=== PATIENT | male | born 1985 | race Two or more races ===

== ENCOUNTER 2018-09-20 13:22 | Emergency (ER) | payer OTHER ==
[~2018-09-20] VITALS: Ht 175.3 cm; Wt 98.2 kg
[2018-09-20] MEDS ORDERED: GLIP10 PO (13:30)
[2018-09-20] MEDS ORDERED: METF-960 PO (13:30)
[2018-09-20] MEDS ORDERED: AMOX1TAB16 PO (13:30)
[2018-09-20] MEDS ORDERED: SULF1TAB PO (13:30)
[2018-09-20] MEDS ORDERED: LIDOCAINE/PF 1% 2 ML VIAL IM ONE (14:45)
[2018-09-20] MEDS ORDERED: CefTRIAXone SODIUM 1 GM/VIAL IM ONE (14:45)
[2018-09-20 15:45] VITALS: BP 132/94
[2018-09-21 19:59] LABS: GLUCOSE,POINT OF CARE 352 MG/DL (70-110)
== END 2018-09-20 15:47 | disposition home or self-care (01) ==
LOC: EMS 13:26
DX: L03.114 Cellulitis of left upper limb (principal); E11.9 Type 2 diabetes mellitus without complications; Z79.84 Long term (current) use of oral hypoglycemic drugs
CPT/HCPCS: 82962; 96372; 99283; J0696; J3490

== ENCOUNTER 2018-10-30 16:01 | Emergency (ER) | payer OTHER ==
[~2018-10-30] VITALS: Ht 172.7 cm; Wt 98.2 kg
[~2018-10-30 16:01] MED LIST: AMOX1TAB16 PO; GLIP10 PO; METF-960 PO; SULF1TAB PO
[2018-10-30 17:21] LABS: BASOPHILS % (AUTO) 0.5 % (0.0-2.0); HEMATOCRIT 41.3 % (41-53); HEMOGLOBIN 13.7 g/dL (13.5-17.5); LYMPHOCYTES # (AUTO) 2.8 K/uL (1.0-4.8); LYMPHOCYTES % (AUTO) 13.9 % (22.0-44.0); MEAN CORPUSCULAR HEMOGLOBIN 29.3 pg (26.0-34.0); MEAN CORPUSCULAR HGB CONC 33.3 G/dL (31.0-37.0); MEAN CORPUSCULAR VOLUME 88 fL (80-100); MONOCYTES # (AUTO) 0.9 K/uL (0.1-1.0); MONOCYTES % (AUTO) 4.6 % (2.0-9.0); NEUTROPHILS # (AUTO) 15.8 K/uL (1.8-7.7); PLATELET COUNT (AUTO) 323 K/uL (150-450); RED BLOOD CELL COUNT(AUTO) 4.69 MIL/uL (4.50-5.90); RED CELL DISTRIBUTION WIDTH 13.4 % (11.5-14.5)
[2018-10-30 17:29] LABS: APPEARANCE,URINE CLEAR (CLEAR); BILIRUBIN,URINE NEGATIVE (NEGATIVE); GLUCOSE, URINE (UA) 100 mg/dL (NEGATIVE); KETONES,URINE NEGATIVE (NEGATIVE); LEUKOCYTE ESTERASE ,URINE NEGATIVE (NEGATIVE); NITRATE,URINE NEGATIVE (NEGATIVE); OCCULT BLOOD,URINE TRACE (NEGATIVE); PH,URINE 5.5 (5.0-8.0); PROTEIN,URINE SEE CONFIRM (NEGATIVE); UROBILINOGEN,URINE 0.2 mg/dL (<=1.0)
[2018-10-30 17:31] LABS: ANION GAP 13 mmol/L (8-16); CALCIUM, TOTAL 9.7 mg/dL (8.8-10.5); CARBON DIOXIDE 23 mmol/L (22-29); CHLORIDE 103 mmol/L (98-107); CREATININE 0.92 mg/dL (0.60-1.30); GLOMERULAR FILTR. RATE CALC > 60 mL/min (>60); GLUCOSE,RANDOM 175 mg/dL (70-110); POTASSIUM 4.3 mmol/L (3.5-5.1); SODIUM SERUM 139 mmol/L (136-145); UREA NITROGEN, BLOOD 21 mg/dL (7-18)
[2018-10-30 17:37] LABS: ALANINE AMINOTRANSFERASE 30 U/L (12-78); ALBUMIN 3.6 g/dL (3.4-5.0); ALKALINE PHOSPHATASE 39 U/L (46-116); ASPARTATE AMINOTRANSFERASE 12 U/L (15-37); BILIRUBIN,TOTAL 0.4 mg/dL (0.1-1.0); LIPASE 481 U/L (73-393); TOTAL PROTEIN, SERUM 7.6 g/dL (6.4-8.2)
[2018-10-30 17:44] LABS: SULFOSALICYLIC ACID,URINE 4+ (Negative)
[2018-10-30 17:45] LABS: RBC,URINE 0-2 /HPF (0-2); WBC,URINE 0-2 /HPF (0-5)
[2018-10-30] MEDS ORDERED: KETOROLAC TROMETHAMINE 30 MG/ML VIAL IM ONE (17:45)
[2018-10-30 17:46] LABS: BACTERIA,URINE None Seen /HPF (None Seen); SQUAMOUS EPITHELIAL CELL,UR Rare /LPF (None Seen)
[2018-10-30 18:53] VITALS: BP 117/57
== END 2018-10-30 20:24 | disposition home or self-care (01) ==
LOC: EMS 16:03
DX: N50.3 Cyst of epididymis (principal); R80.9 Proteinuria, unspecified; F17.210 Nicotine dependence, cigarettes, uncomplicated; E11.9 Type 2 diabetes mellitus without complications; Z79.84 Long term (current) use of oral hypoglycemic drugs
CPT/HCPCS: 36415; 76870; 80053; 81001; 82962; 83690; 85025; 96372; 99284; 99406; J1885

== ENCOUNTER 2018-11-01 00:09 | Emergency (ER) | payer OTHER ==
[~2018-11-01] VITALS: Ht 172.7 cm; Wt 98.2 kg
[2018-11-01 00:39] LABS: GLUCOSE,POINT OF CARE 161 MG/DL (70-110)
[2018-11-01 04:18] LABS: APPEARANCE,URINE CLEAR (CLEAR); BILIRUBIN,URINE NEGATIVE (NEGATIVE); GLUCOSE, URINE (UA) NEGATIVE (NEGATIVE); KETONES,URINE NEGATIVE (NEGATIVE); LEUKOCYTE ESTERASE ,URINE NEGATIVE (NEGATIVE); NITRATE,URINE NEGATIVE (NEGATIVE); OCCULT BLOOD,URINE TRACE (NEGATIVE); PROTEIN,URINE SEE CONFIRM (NEGATIVE); UROBILINOGEN,URINE 0.2 mg/dL (<=1.0)
[2018-11-01 04:19] LABS: ANION GAP 13 mmol/L (8-16); BASOPHILS % (AUTO) 0.7 % (0.0-2.0); CARBON DIOXIDE 26 mmol/L (22-29); CHLORIDE 102 mmol/L (98-107); CREATININE 1.04 mg/dL (0.60-1.30); EOSINOPHILS % (AUTO) 2.5 % (1.0-6.0); GLOMERULAR FILTR. RATE CALC > 60 mL/min (>60); GLUCOSE,RANDOM 114 mg/dL (70-110); HEMATOCRIT 40.3 % (41-53); HEMOGLOBIN 13.4 g/dL (13.5-17.5); LYMPHOCYTES # (AUTO) 4.6 K/uL (1.0-4.8); LYMPHOCYTES % (AUTO) 26.2 % (22.0-44.0); MEAN CORPUSCULAR HEMOGLOBIN 29.5 pg (26.0-34.0); MEAN CORPUSCULAR HGB CONC 33.4 G/dL (31.0-37.0); MEAN CORPUSCULAR VOLUME 88 fL (80-100); NEUTROPHILS # (AUTO) 11.3 K/uL (1.8-7.7); NEUTROPHILS % (AUTO) 64.6 % (40.0-70.0); PLATELET COUNT (AUTO) 316 K/uL (150-450); POTASSIUM 4.3 mmol/L (3.5-5.1); RED BLOOD CELL COUNT(AUTO) 4.56 MIL/uL (4.50-5.90); RED CELL DISTRIBUTION WIDTH 13.2 % (11.5-14.5); SODIUM SERUM 141 mmol/L (136-145); UREA NITROGEN, BLOOD 19 mg/dL (7-18)
[2018-11-01 04:26] LABS: ALANINE AMINOTRANSFERASE 29 U/L (12-78); ALBUMIN 3.7 g/dL (3.4-5.0); ALKALINE PHOSPHATASE 42 U/L (46-116); ASPARTATE AMINOTRANSFERASE 12 U/L (15-37); BILIRUBIN,TOTAL 0.4 mg/dL (0.1-1.0); LIPASE 250 U/L (73-393); TOTAL PROTEIN, SERUM 7.8 g/dL (6.4-8.2)
[2018-11-01 04:31] LABS: BACTERIA,URINE None Seen /HPF (None Seen); RBC,URINE 0-2 /HPF (0-2); SQUAMOUS EPITHELIAL CELL,UR None Seen /LPF (None Seen); WBC,URINE 0-2 /HPF (0-5)
[2018-11-01 04:32] LABS: SULFOSALICYLIC ACID,URINE 4+ (Negative)
[2018-11-01] MEDS ORDERED: SODIUM CHLORIDE 0.9% 100 ML ONE (04:56)
[2018-11-01] MEDS ORDERED: IOVERSOL 350 MG/ML 150 ML VIAL ONE (04:56)
[2018-11-01] MEDS ORDERED: SODIUM CHLORIDE 0.9% 1,000 ML IV ONE (05:15)
[2018-11-01] MEDS ORDERED: KETOROLAC TROMETHAMINE 30 MG/ML VIAL IVP ONE (05:15)
[2018-11-01] MEDS ORDERED: PIPERACILLIN/TAZO 3.375 GM/D5W 50 ML IV ONE (05:15)
[2018-11-01] MEDS ORDERED: ONDANSETRON HCL 4 MG/2 ML VIAL IVP ONE (05:15)
[2018-11-01 07:25] VITALS: BP 132/83
== END 2018-11-01 07:33 | disposition home or self-care (01) ==
LOC: EMS 00:12
DX: N12 Tubulo-interstitial nephritis, not specified as acute or chronic (principal); E11.9 Type 2 diabetes mellitus without complications; Z79.84 Long term (current) use of oral hypoglycemic drugs
CPT/HCPCS: 36415; 74177; 80053; 81001; 82962; 83690; 85025; 96365; 96375; 99284; J1885; J2405; J2543; J7050; Q9967

== ENCOUNTER 2020-06-12 23:58 | Emergency (ER) | payer OTHER ==
[~2020-06-12] VITALS: Ht 172.7 cm; Wt 100.9 kg
[~2020-06-12 23:58] MED LIST changes: -AMOX1TAB16 PO; -SULF1TAB PO
[2020-06-13] MEDS ORDERED: METOCLOPRAMIDE HCL 10 MG TABLET PO ONE (00:30)
[2020-06-13] MEDS ORDERED: DiphenhydrAMINE HCL 25 MG CAPSULE PO ONE (00:30)
[2020-06-13 03:04] VITALS: BP 153/96
== END 2020-06-13 03:07 | disposition home or self-care (01) ==
LOC: EMS 23:59
DX: R51.9 Headache, unspecified (principal); E11.9 Type 2 diabetes mellitus without complications
CPT/HCPCS: 70450; 99283; 99284